=== PATIENT | male | born 1940 | race Caucasian/White ===

== ENCOUNTER 2016-06-14 11:20 | Inpatient (IN) | payer OTHER ==
[~2016-06-14] VITALS: Ht 167.6 cm; Wt 72.8 kg
[~2016-06-14 11:20] MED LIST: ASPIR 8181 M1 PO; LIDOCAINE700 MG TD; NORCO 5/3251 TABLET PO; PRAVACHOL10 MG PO
[2016-06-14 12:09] LABS: HEMATOCRIT 52.6 % (38.0-50.0); MCH 29.3 PG (29.0-34.0); MCHC 32.9 G/DL (30.0-36.0); MEAN PLAT.VOLUME 9.8 uM^3 (9.0-12.4); PLATELET COUNT 207 K/uL (156-360); RBC DIS.WIDTH-CV 13.3 % (11.8-14.6); RBC DIS.WIDTH-SD 43.7 % (39-53); RED BLOOD COUNT 5.91 M/uL (4.00-5.50); WHITE BLOOD COUNT 7.6 K/uL (4.1-10.2)
[2016-06-14 12:23] LABS: CHLORIDE 105 mEq/L (99-109); POTASSIUM 4.4 mEq/L (3.7-5.4); SODIUM 138 mEq/L (136-147)
[2016-06-14 12:24] LABS: GLUCOSE 98 mg/dL (70-99)
[2016-06-14 12:26] LABS: ANION GAP 8 MEQ/L (2-14)
[2016-06-14 12:28] LABS: GFR ESTIMATE (CALCULATED) > 59 mL/min/
[2016-06-14 12:29] LABS: UREA NITROGEN (BUN) 19 mg/dL (9-23)
[2016-06-14 12:31] LABS: TROP-I INTERPRETATION POSITIVE; TROPONIN-I 1.01 ng/mL (0.0-0.30)
[2016-06-14 13:39] LABS: INTER. NORMALIZED RATIO 1.1; PROTHROMBIN TIME 10.8 (9.2-11.2); PTT 28.4 (25-32)
[2016-06-14 16:25] VITALS: BP 158/79
[2016-06-14 17:03] LABS: TROP-I INTERPRETATION POSITIVE; TROPONIN-I 1.17 ng/mL (0.0-0.30)
[2016-06-14 19:20] VITALS: BP 131/76
[2016-06-14 23:29] VITALS: BP 134/85
[2016-06-15 00:23] LABS: TROP-I INTERPRETATION POSITIVE; TROPONIN-I 1.31 ng/mL (0.0-0.30)
[2016-06-15 02:23] LABS: HEMATOCRIT 48.7 % (38.0-50.0); MCH 29.5 PG (29.0-34.0); MCHC 33.5 G/DL (30.0-36.0); MCV 88.1 FL (86-99); MEAN PLAT.VOLUME 9.8 uM^3 (9.0-12.4); PLATELET COUNT 190 K/uL (156-360); RBC DIS.WIDTH-CV 13.4 % (11.8-14.6); RBC DIS.WIDTH-SD 43.5 % (39-53); RED BLOOD COUNT 5.53 M/uL (4.00-5.50); WHITE BLOOD COUNT 6.1 K/uL (4.1-10.2)
[2016-06-15 04:21] VITALS: BP 105/62
[2016-06-15 07:49] LABS: Estimated Average Glucose 123 mg/dL (70-123); HEMOGLOBIN A1c (GLYCOHEMOGLOB) 5.9 % HGB (Below 5.7)
[2016-06-15 08:31] VITALS: BP 115/70
[2016-06-15 11:12] LABS: ALKALINE PHOSPHATASE 69 IU/L (3-129); ANION GAP 12 MEQ/L (2-14); CHLORIDE 108 MEQ/L (99-109); GFR ESTIMATE (CALCULATED) > 59 mL/min/; GLUCOSE 100 mg/dL (70-99); HDL CHOLESTEROL 42 MG/DL (Desirable>=40); LDL CHOLESTEROL 131 mg/dL (Desirable<100); NON-HDL CHOLESTEROL 142 mg/dL (Desirable<160); SAMPLE HEMOLYSIS CHECK 1; SAMPLE ICTERIC CHECK 0; SAMPLE LIPEMIA CHECK 0; SODIUM 139 MEQ/L (136-147); TOTAL BILIRUBIN 0.9 MG/DL (0.0-1.0); TOTAL CHOLESTEROL 184 mg/dL (Desirable<200); TRIGLYCERIDES 56 MG/DL (Normal: <150); UREA NITROGEN (BUN) 16 mg/dL (9-23)
[2016-06-15 11:36] LABS: POTASSIUM 4.5 MEQ/L (3.7-5.4)
[2016-06-15 14:30] VITALS: BP 126/74
[2016-06-15 15:30] VITALS: BP 122/74
[2016-06-15 16:30] VITALS: BP 128/72
[2016-06-15 22:00] VITALS: BP 149/71
[2016-06-16] VITALS: BP 112/70
[2016-06-16 04:00] VITALS: BP 132/63
[2016-06-16 07:00] VITALS: BP 157/80
[2016-06-16 09:22] LABS: ANION GAP 7 MEQ/L (2-14); CHLORIDE 109 MEQ/L (99-109); GFR ESTIMATE (CALCULATED) > 59 mL/min/; GLUCOSE 88 mg/dL (70-99); MAGNESIUM 1.8 mg/dl (1.3-2.7); POTASSIUM 3.9 MEQ/L (3.7-5.4); SAMPLE HEMOLYSIS CHECK 0; SAMPLE ICTERIC CHECK 0; SAMPLE LIPEMIA CHECK 0; SODIUM 139 MEQ/L (136-147); UREA NITROGEN (BUN) 13 mg/dL (9-23)
== END 2016-06-16 08:51 | disposition short-term general hospital (02) | DRG 282 ==
LOC: EME 11:20 → EDOF 13:41 → 4EAST 13:41
PROVIDERS: Emergency Medicine; Internal Medicine; Internal Medicine Cardiovascular Disease
DX: I21.4 Non-ST elevation (NSTEMI) myocardial infarction (principal); I25.10 Atherosclerotic heart disease of native coronary artery without angina pectoris; R00.1 Bradycardia, unspecified; D75.1 Secondary polycythemia; J44.9 Chronic obstructive pulmonary disease, unspecified; I10 Essential (primary) hypertension; E78.5 Hyperlipidemia, unspecified; Z87.891 Personal history of nicotine dependence
CPT/HCPCS: 71020; 80048; 80053; 80061; 83036; 83735; 84484; 85027; 85347; 85610; 85730; 93005; 99281; 99285; C1769; C1887; J1644; J2250; J3010; J7030; J7050; S0028

== ENCOUNTER → 2016-10-18 | Emergency (ER) | payer OTHER ==
[~2016-10-18] VITALS: Ht 167.6 cm; Wt 69.0 kg
[2016-10-18 10:05] VITALS: BP 119/77
[2016-10-18 11:10] LABS: EOSINOPHIL (%) 7.3 % (0-5); EOSINOPHIL COUNT 0.3 K/uL (0-0.3); HEMATOCRIT 43.8 % (38.0-50.0); IMMATURE GRANULOCYTE (%) 0.2 % (0.0-0.7); INSTRUMENT ABS NEUTROPHIL CT 2.1 K/uL; LYMPHOCYTE COUNT 1.3 K/uL (1.0-2.8); MCH 26.4 PG (29.0-34.0); MCHC 32.4 G/DL (30.0-36.0); MCV 81.4 FL (86-99); MONOCYTE (%) 15.4 % (3-12); MONOCYTE COUNT 0.7 K/uL (0-0.8); NEUTROPHIL (%) 47.7 % (45-76); NEUTROPHIL COUNT 2.1 K/uL (1.8-6.4); PLATELET COUNT 169 K/uL (156-360); RBC DIS.WIDTH-CV 17.5 % (11.8-14.6); RBC DIS.WIDTH-SD 51.8 % (39-53); RED BLOOD COUNT 5.38 M/uL (4.00-5.50); WHITE BLOOD COUNT 4.4 K/uL (4.1-10.2)
[2016-10-18 11:16] LABS: INTER. NORMALIZED RATIO 1.1; PROTHROMBIN TIME 11.6 SEC (10.2-12.9)
[2016-10-18 11:19] LABS: CHLORIDE 108 mEq/L (99-109); POTASSIUM 4.2 mEq/L (3.7-5.4); SODIUM 137 mEq/L (136-147)
[2016-10-18 11:19] LABS: PTT 30.1 SEC (25-37)
[2016-10-18 11:22] LABS: GLUCOSE 117 mg/dL (70-99)
[2016-10-18 11:23] LABS: ANION GAP 10 MEQ/L (2-14)
[2016-10-18 11:24] LABS: TOTAL BILIRUBIN 0.4 mg/dL (0.0-1.0)
[2016-10-18 11:25] LABS: ALKALINE PHOSPHATASE 85 IU/L (3-129)
[2016-10-18 11:26] LABS: GFR ESTIMATE (CALCULATED) > 59 mL/min/
[2016-10-18 11:27] LABS: DIRECT BILIRUBIN 0.2 mg/dL (0.0-0.3); UREA NITROGEN (BUN) 23 mg/dL (9-23)
[2016-10-18 11:29] LABS: LIPASE 68 U/L (1.0-51.0)
[2016-10-18 11:32] LABS: TROP-I INTERPRETATION NEGATIVE; TROPONIN-I < 0.01 ng/mL (0.0-0.30)
== END | disposition home or self-care (01) ==
LOC: EME 09:50
PROVIDERS: Emergency Medicine
DX: R07.89 Other chest pain (principal); E78.5 Hyperlipidemia, unspecified; I10 Essential (primary) hypertension; Z95.1 Presence of aortocoronary bypass graft; Z87.891 Personal history of nicotine dependence
CPT/HCPCS: 71010; 80048; 80076; 83690; 83880; 84484; 85025; 85610; 85730; 93005; 99281; 99284

== ENCOUNTER 2016-11-21 20:47 | Emergency (ER) | payer OTHER ==
[~2016-11-21] VITALS: Ht 167.6 cm; Wt 68.1 kg
[2016-11-21] MEDS ORDERED: LOPRESSOR25 MG PO (21:16)
[2016-11-21] MEDS ORDERED: LIPITOR20 MG PO (21:16)
[2016-11-21] MEDS ORDERED: CLOPIDOGREL75 MG PO (21:16)
[2016-11-21] MEDS ORDERED: CALCIUM CITRAT200 MG PO (21:17)
[2016-11-21] MEDS ORDERED: RANITIDINE HCL150 M1 PO (21:17)
[2016-11-21] MEDS ORDERED: VITAMIN D31000 UNIT PO (21:17)
[2016-11-21] MEDS ORDERED: CENTRUM SILVER1 EAC5 PO (21:18)
[2016-11-21 21:20] LABS: HEMATOCRIT 45.8 % (38.0-50.0); MCH 27.5 PG (29.0-34.0); MCHC 32.8 G/DL (30.0-36.0); MCV 83.9 FL (86-99); PLATELET COUNT 182 K/uL (156-360); RBC DIS.WIDTH-CV 18.1 % (11.8-14.6); RBC DIS.WIDTH-SD 54.9 % (39-53); RED BLOOD COUNT 5.46 M/uL (4.00-5.50); WHITE BLOOD COUNT 7.7 K/uL (4.1-10.2)
[2016-11-21 21:32] LABS: CHLORIDE 105 mEq/L (99-109); SODIUM 140 mEq/L (136-147)
[2016-11-21 21:35] LABS: GLUCOSE 113 mg/dL (70-99)
[2016-11-21 21:36] LABS: ANION GAP 11 MEQ/L (2-14)
[2016-11-21 21:37] LABS: TOTAL BILIRUBIN 0.6 mg/dL (0.0-1.0)
[2016-11-21 21:38] LABS: ALKALINE PHOSPHATASE 86 IU/L (3-129); GFR ESTIMATE (CALCULATED) > 59 mL/min/
[2016-11-21 21:39] LABS: UREA NITROGEN (BUN) 23 mg/dL (9-23)
[2016-11-21 21:42] LABS: LIPASE 34 U/L (1.0-51.0)
[2016-11-21 23:10] LABS: ADD MIUA? YES; BILIRUBIN NEGATIVE; BLOOD LARGE; COLOR YELLOW ((YELLOW)); GLUCOSE (STRIP) NEGATIVE; KETONES 5; LEUKOCYTES NEGATIVE; NITRITE NEGATIVE; PROTEIN (STRIP) NEGATIVE; UROBILINOGEN 0.2 MG/DL (0.2-1.0)
[2016-11-21 23:13] LABS: BACTERIA NONE SEEN /HPF; EPITHELIAL CELLS RARE /HPF; MUCUS TRACE /LPF; RED BLOOD CELLS TNTC /HPF (0-5); UCUL ADDED? YES; WHITE BLOOD CELLS 0-5 /HPF (0-5)
[2016-11-21] MEDS ORDERED: ZOFRAN ODT4 MG PO (23:50)
[2016-11-22 00:08] VITALS: BP 149/81
== END 2016-11-22 00:14 | disposition home or self-care (01) ==
LOC: EME 20:47
PROVIDERS: Physician Assistant
DX: N20.0 Calculus of kidney (principal); R11.0 Nausea; E78.5 Hyperlipidemia, unspecified; I10 Essential (primary) hypertension; Z95.1 Presence of aortocoronary bypass graft; Z87.891 Personal history of nicotine dependence; Z79.82 Long term (current) use of aspirin
CPT/HCPCS: 74177; 80053; 81003; 83690; 85027; 87086; 93005; 99281; 99284; J2405; J7030

== ENCOUNTER 2017-10-08 19:21 | Observation (INO) | payer OTHER ==
[~2017-10-08] VITALS: Ht 167.6 cm; Wt 68.6 kg
[~2017-10-08 19:21] MED LIST changes: +CALCIUM CITRAT200 MG PO; +CENTRUM SILVER1 EAC5 PO; +CLOPIDOGREL75 MG PO; +LIPITOR20 MG PO; +LOPRESSOR25 MG PO; +RANITIDINE HCL150 M1 PO; +VITAMIN D31000 UNIT PO; +ZOFRAN ODT4 MG PO
[2017-10-08 20:03] LABS: HEMATOCRIT 43.1 % (38.0-50.0); HEMOGLOBIN 15.1 G/DL (12.5-16.6); MCH 31.7 PG (29.0-34.0); MCV 90.4 FL (86-99); PLATELET COUNT 155 K/uL (156-360); RBC DIS.WIDTH-CV 13.2 % (11.8-14.6); RBC DIS.WIDTH-SD 43.5 % (39-53); RED BLOOD COUNT 4.77 M/uL (4.00-5.50); WHITE BLOOD COUNT 17.2 K/uL (4.1-10.2)
[2017-10-08 20:11] LABS: CHLORIDE 105 mEq/L (99-109); POTASSIUM 3.7 mEq/L (3.7-5.4); SODIUM 136 mEq/L (136-147)
[2017-10-08 20:13] LABS: GLUCOSE 112 mg/dL (70-99)
[2017-10-08 20:17] LABS: CREATININE 0.8 mg/dL (0.6-1.3); GFR ESTIMATE (CALCULATED) > 59 mL/min/ (58.99-99999)
[2017-10-08 20:18] LABS: UREA NITROGEN (BUN) 20 mg/dL (9-23)
[2017-10-08 20:24] LABS: TROP-I INTERPRETATION NEGATIVE; TROPONIN-I 0.01 ng/mL (0.0-0.30)
[2017-10-08 21:12] LABS: ALBUMIN 4.1 g/dL (3.2-4.8)
[2017-10-08 21:15] LABS: TOTAL PROTEIN 7.1 g/dL (6.4-8.3)
[2017-10-08 21:17] LABS: TOTAL BILIRUBIN 0.8 mg/dL (0.0-1.0)
[2017-10-08 21:18] LABS: ALKALINE PHOSPHATASE 72 IU/L (3-129)
[2017-10-08 21:20] LABS: AST (GOT) 31 IU/L (2-34)
[2017-10-08 21:21] LABS: ALT (GPT) 35 IU/L (3-49); DIRECT BILIRUBIN 0.4 mg/dL (0.0-0.3)
[2017-10-08 22:24] LABS: APPEARANCE CLEAR ((CLEAR)); BILIRUBIN NEGATIVE; BLOOD NEGATIVE; COLOR YELLOW ((YELLOW)); GLUCOSE (STRIP) NEGATIVE; KETONES 5; LEUKOCYTES NEGATIVE; NITRITE NEGATIVE; PROTEIN (STRIP) NEGATIVE; SPECIFIC GRAVITY 1.013 (1.000-1.030); UCUL ADDED? NO; UROBILINOGEN 0.2 MG/DL (0.2-1.0)
[2017-10-08 23:15] LABS: TROP-I INTERPRETATION NEGATIVE; TROPONIN-I < 0.01 ng/mL (0.0-0.30)
[2017-10-09 01:38] VITALS: BP 137/56
[2017-10-09 01:42] VITALS: BP 137/56
[2017-10-09 07:56] LABS: TROP-I INTERPRETATION NEGATIVE; TROPONIN-I < 0.01 ng/mL (0.0-0.30)
[2017-10-09 09:48] LABS: HEMATOCRIT 39.7 % (38.0-50.0); HEMOGLOBIN 13.9 G/DL (12.5-16.6); MCH 31.8 PG (29.0-34.0); MCV 90.8 FL (86-99); PLATELET COUNT 131 K/uL (156-360); RBC DIS.WIDTH-CV 13.2 % (11.8-14.6); RBC DIS.WIDTH-SD 44.8 % (39-53); RED BLOOD COUNT 4.37 M/uL (4.00-5.50); WHITE BLOOD COUNT 8.3 K/uL (4.1-10.2)
== END 2017-10-09 11:29 | disposition home or self-care (01) ==
LOC: EME 19:21 → EDOF 10-09 00:31 → ENRESERV 10-09 00:32 → 4SOUTH 10-09 01:24 → ENPENDDIS 10-09 10:03 → 4SOUTH 10-09 11:29
PROVIDERS: Emergency Medicine; Hospitalist; Nurse Practitioner Family
DX: R68.83 Chills (without fever) (principal); D72.829 Elevated white blood cell count, unspecified; R94.31 Abnormal electrocardiogram [ECG] [EKG]; I45.10 Unspecified right bundle-branch block; R53.1 Weakness; I25.10 Atherosclerotic heart disease of native coronary artery without angina pectoris; J44.9 Chronic obstructive pulmonary disease, unspecified; Z95.1 Presence of aortocoronary bypass graft; I10 Essential (primary) hypertension; E78.5 Hyperlipidemia, unspecified; Z87.891 Personal history of nicotine dependence; Z79.82 Long term (current) use of aspirin; Z79.02 Long term (current) use of antithrombotics/antiplatelets
CPT/HCPCS: 71046; 80048; 80076; 81003; 83605; 84484; 85027; 87040; 93005; 99281; 99285; G0378; J1956; J2405; J7040